=== PATIENT | female | born 1990 | race African-American/Black ===

== ENCOUNTER 2018-04-03 08:52 | Emergency (ER) | payer SELFPAY ==
[~2018-04-03] VITALS: Ht 167.6 cm; Wt 68.0 kg
[2018-04-03 08:52] VITALS: BP 111/62
--- NOTE | 2018-04-03 09:52 | NUR ---
Patient ambulating with steady gait. Patient discharged to home in stable condition. Written and verbal after care instructions given. Patient verbalizes understanding of instruction.
== END 2018-04-03 09:52 | disposition home or self-care (01) ==
LOC: EDBD 08:57 → EDSEX 08:57 → ER 08:57
DX: F10.129 Alcohol abuse with intoxication, unspecified (principal); Y90.9 Presence of alcohol in blood, level not specified
CPT/HCPCS: 99283; A4606; Z7610